=== PATIENT | female | born 1965 | race Two or more races ===

== ENCOUNTER 2023-01-08 12:55 | Emergency (ER) | payer BC ==
[2023-01-08 13:40] VITALS: O2SAT 100
[2023-01-08 14:06] LABS: BASOPHILS % (AUTO) 0.3 %; EOSINOPHILS % (AUTO) 0.7 %; HCT - HEMATOCRIT 39.4 % (37.0-47.0); LYMPHOCYTES # (AUTO) 1.4 10^3/uL (1.5-3.5); LYMPHOCYTES % (AUTO) 23.1 %; MEAN CORPUSCULAR HEMOGLOBIN 30.7 pg (27.0-31.0); MEAN CORPUSCULAR VOLUME 93.1 fL (81.0-99.0); MEAN PLATELET VOLUME 9.1 fL (7.9-10.8); MONOCYTES # (AUTO) 0.3 10^3/uL (0.0-1.0); MONOCYTES % (AUTO) 5.1 %; NEUTROPHILS # (AUTO) 4.3 10^3/uL (1.5-6.6); NEUTROPHILS % (AUTO) 70.5 %; PLT - PLATELET COUNT 325 10^3/uL (130-450); RED BLOOD COUNT 4.23 10^6/uL (4.20-5.40); WHITE BLOOD COUNT 6.1 x10^3/uL (4.8-10.8)
--- NOTE | 2023-01-08 14:24 | XRAY Report ---
PROCEDURE: Chest 1 View X-Ray INDICATIONS: Chest pain TECHNIQUE: One view of the chest was acquired. COMPARISON: None. FINDINGS: Surgical changes and devices: None. Lungs and pleura: No pleural effusions or pneumothorax. Lungs are clear. Mediastinum: Mediastinal contours appear normal. Heart size is normal. Bones and chest wall: No suspicious bony lesions. Overlying soft tissues appear unremarkable. IMPRESSION: No acute cardiopulmonary process. Reviewed by: Tanner Langford MD on 01/08/2023 2:23 PM [facility] Approved by: Tanner Langford MD on 01/08/2023 2:23 PM [facility] Station ID: [id number]
[2023-01-08 14:34] LABS: TROPONIN I HIGH SENSITIVITY 2.3 ng/L (2.3-14.8)
--- NOTE | 2023-01-08 14:43 | ED Physician Documentation ---
History of Present Illness - Stated complaint Stated Complaint: DIZZY,NAUSEA,RECINOS - Chief complaint Chief Complaint: Neuro - History obtained from History obtained from: Patient - History of Present Illness Timing: Today Pain level max: 0 Pain level now: 0 - Additonal information Additional information: 57-year-old female presents to the emergency department stating that she feels like the room is spinning around her. Better with closing her eyes and remaining still. Worse with movement. Mild nausea. Triage note states that she had chest pain, patient denies this to me. No fevers. No chills. No cough. No congestion. No numbness or tingling. No focal weakness. No headache. No trauma. Review of Systems Constitutional: denies: Fever, Chills GI: denies: Vomiting, Diarrhea : denies: Dysuria, Frequency, Hesitancy PD PAST MEDICAL HISTORY - Past Medical History Past Medical History: Yes Psych: Depression - Past Surgical History Past Surgical History: Yes /WINDING OPERATOR: section - Present Medications Home Medications: Ambulatory Orders Medication Instructions Recorded Confirmed Meclizine HCl [Motion Sickness] 25 - 50 mg PO Q6H PRN #30 tablet 01/08/23 Ondansetron Odt [Zofran] 4 mg TL Q6H PRN #10 tablet 01/08/23 - Allergies Allergies/Adverse Reactions: Allergies Allergy/AdvReac Type Severity Reaction Status Date / Time No Known Drug Allergies Allergy Verified 01/08/23 13:33 - Social History Does the pt smoke?: No Smoking Status: Never smoker Does the pt drink ETOH?: Yes Does the pt have substance abuse?: No - Immunizations Immunizations are current?: Yes - POLST Patient has POLST: No PD ED PE NORMAL - Vitals Vital signs reviewed: Yes - General General: Alert and oriented X 3, No acute distress - HEENT HEENT: Atraumatic, PERRL, EOMI, Ears normal, Moist mucous membranes, Pharynx benign - Neck Neck: Supple, no meningeal sign - Cardiac Cardiac: RRR, Strong equal pulses - Respiratory Respiratory: No respiratory distress, Clear bilaterally - Abdomen Abdomen: Soft, Non tender, Non distended - Back Back: No CVA TTP, No spinal TTP - Derm Derm: Warm and dry, No rash - Extremities Extremities: No edema, No calf tenderness / cord - Neuro Neuro: Alert and oriented X 3, 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 Left-sided nystagmus) Eye Opening: Spontaneous Motor: Obeys Commands Verbal: Oriented GCS Score: 15 - Psych Psych: Normal mood, Normal affect - Free text exam Free text exam: Normal gait. Normal cerebellar testing. Results - Vitals Vitals: Vital Signs - 24 hr 01/08/23 01/08/23 01/08/23 13:25 13:31 15:31 Temperature 36.1 C L 36.5 C 36.5 C Heart Rate 72 72 70 Respiratory 16 16 16 Rate Blood Pressure 142/80 H 142/86 H 130/82 H O2 Saturation 100 100 100 Oxygen O2 Source Room air - EKG (time done) 1335 EKG releavant findings:: EKG personally interpreted by author of this note. Relevant findings are: Rate: Rate (enter#) (67) Rhythm: NSR Varnell: Normal Intervals: Normal TX QRS: Normal Ischemia: Normal ST segments - Labs Labs: Laboratory Tests 01/08/23 01/08/23 13:59 13:59 WBC 6.1 RBC 4.23 Hgb 13.0 Hct 39.4 MCV 93.1 MCH 30.7 MCHC 33.0 RDW 12.0 Plt Count 325 MPV 9.1 Neut # (Auto) 4.3 Lymph # (Auto) 1.4 L Gray # (Auto) 0.3 Eos # (Auto) 0.0 Baso # (Auto) 0.0 Absolute Nucleated RBC 0.00 Nucleated RBC % 0.0 Sodium 137 Potassium 4.0 Chloride 105 Carbon Dioxide 27 Anion Gap 5.0 L BUN 14 Creatinine 0.5 L Estimated GFR (MDRD) 128 Glucose 101 Calcium 9.5 Total Bilirubin 0.3 AST 12 ALT 9 L Alkaline Phosphatase 78 Troponin I High Sens 2.3 Total Protein 7.2 Albumin 4.4 Globulin 2.8 Albumin/Globulin Ratio 1.6 Lipase < 10 L PD Medical Decision Making - ED course Complexity details: re-evaluated patient, considered differential, d/w patient ED course: Patient with what appears to be BPPV. No rotary or vertical nystagmus. Given a dose of Toradol and meclizine. Symptoms resolved. Ambulating without difficulty. Normal cerebellar test. Normal gait. No focal neurological deficits. Patient was counseled regarding repositioning maneuvers at home. Patient counseled regarding signs and symptoms for which I believe and urgent re-evaluation would be necessary. Patient with good understanding of and agreement to plan and is comfortable going home at this time This document was made in part using voice recognition software. While efforts are made to proofread this document, sound alike and grammatical errors may occur. Departure - Departure Disposition: 01 Home, Self Care Clinical Impression: Benign paroxysmal positional vertigo Qualifiers: Laterality: left Qualified Code(s): H81.12 - Benign paroxysmal vertigo, left ear Condition: Good Instructions: ED BPV Vertigo Follow-Up: your,doctor in 1 week [Other] Prescriptions: Meclizine HCl [Motion Sickness] 25 - 50 mg PO Q6H PRN #30 tablet PRN Reason: Dizziness Ondansetron Odt [Zofran] 4 mg TL Q6H PRN #10 tablet PRN Reason: Nausea / Vomiting Comments: Your blood work does not show any acute abnormalities today. Your prescriptions were sent to [facility] in [place]. You appear to have benign paroxysmal positional vertigo. You can try repositioning maneuvers such as the Emily maneuver or half somersault maneuver, these are available on YouTube. It appears that your left ear is the one affected. Please return if you worsen. This should improve in the next 24 to 48 hours. Forms: PCP List Discharge Date/Time: 01/08/23 15:39
[2023-01-08 14:45] LABS: ALBUMIN 4.4 g/dL (3.2-5.5); ALBUMIN/GLOBULIN RATIO 1.6 (1.0-2.2); ALKALINE PHOSPHATASE 78 IU/L (42-121); ALT ALANINE AMINOTRANSFERASE 9 IU/L (10-60); AST ASPARTATE AMINOTRANSFERASE 12 IU/L (10-42); BILIRUBIN,TOTAL 0.3 mg/dL (0.2-1.0); BUN - BLOOD UREA NITROGEN 14 mg/dL (6-20); CALCIUM 9.5 mg/dL (8.5-10.3); CARBON DIOXIDE - CO2 27 mmol/L (21-32); CHLORIDE 105 mmol/L (101-111); CREATININE 0.5 mg/dL (0.6-1.3); GFR - MDRD 128 (>89); GLUCOSE 101 mg/dL (74-104); LIPASE < 10 U/L (11-82); SODIUM 137 mmol/L (135-145); TOTAL PROTEIN 7.2 g/dL (6.4-8.9)
[2023-01-08] MEDS ORDERED: MECLIZINE 12.5 MG TABLET PO STA (14:53)
[2023-01-08] MEDS ORDERED: DROPERIDOL 5 MG/2 ML VIAL IM STA (14:53)
[2023-01-08 15:37] VITALS: BP 130/82
== END 2023-01-08 15:39 | disposition home or self-care (01) ==
LOC: ED 12:55
DX: H81.12 Benign paroxysmal vertigo, left ear (principal)
CPT/HCPCS: 36415; 71045; 80053; 83690; 84484; 85025; 93005; 96372; 99284; A9270